=== PATIENT | female | born 1985 | race Two or more races ===

== ENCOUNTER 2025-05-13 09:12 | Emergency (ER) | payer OTHER ==
[~2025-05-13] VITALS: Ht 157.5 cm; Wt 64.0 kg
[2025-05-13] MEDS ORDERED: FAMOTIDINE/PF 20 MG in 0.9 % SODIUM CHLORIDE 8 ML IV PUSH ONE (09:45)
[2025-05-13] MEDS ORDERED: 0.9 % SODIUM CHLORIDE 1,000 ML IV SCH (09:45)
[2025-05-13] MEDS ORDERED: LACTOBACILLUS ACIDOPHILUS 1 CAP CAP PO ONE ×2 (09:45→10:11)
[2025-05-13] MEDS ORDERED: ONDANSETRON HCL 4 MG in 0.9 % SODIUM CHLORIDE 50 ML IV ONE (09:45)
[2025-05-13] MEDS ORDERED: HYOSCYAMINE SULFATE 0.125 MG TAB.SUBL SL ONE (09:45)
[2025-05-13] MEDS ORDERED: ONDANSETRON HCL 2 MG/ML VIAL ONE (10:10)
[2025-05-13] MEDS ORDERED: HYOSCYAMINE SULFATE 0.125 MG TAB.SUBL ONE (10:10)
[2025-05-13] MEDS ORDERED: FAMOTIDINE/PF 20 MG/2 ML VIAL ONE (10:11)
[2025-05-13 10:47] LABS: BASO % 0.7 % (0.1-1.2); EOS # 0.03 (0.04-0.54); EOS % 0.4 % (0.7-7.0); LYMPH # 2.36 (1.18-3.74); LYMPH % 30.9 % (19.3-53.1); MEAN PLATELET VOLUME 10.20 fl (9.4-12.4); MONO # 0.43 (0.24-0.82); MONO % 5.6 % (4.7-12.5); NEUT # 4.75 (1.56-6.13); NEUT % 62.1 % (34.0-71.1); RED CELL DISTRIBUTION WIDTH 14.4 % (11.6-14.4)
[2025-05-13 10:55] LABS: URINE APPEARANCE Cloudy; URINE BILIRRUBIN Negative (NEGATIVE); URINE BLOOD Negative; URINE COLOR Yellow; URINE GLUCOSE Negative (NEGATIVE); URINE KETONE Trace (NEGATIVE); URINE LEUKOCYTE Negative; URINE NITRATE Negative; URINE PROTEIN Trace (NEGATIVE); URINE UROBILINOGEN 0.2 E.U./dl
[2025-05-13 10:57] LABS: URINE BACTERIA 847.1 uL (0.0-1933); URINE CAST 1.90 uL (0.0-1.40); URINE EPITHELIAL CELLS 25.5 uL (0.0-38.8); URINE RBC 31.2 uL (0.0-20.8); URINE WBC 13.6 uL (0.0-23.2)
[2025-05-13 11:13] LABS: INR 1.09
[2025-05-13 12:20] LABS: ALT/SGPT 19 U/L (12-78); AST/SGOT 11 U/L (15-37); BILIRUBIN TOTAL 0.55 mg/dL (0.3-1.2); BUN CREA RATIO 17 (7.0-25.0); CREATININE SERUM 0.59 mg/dL (0.55-1.02); GFR 114.07; GLOBULINA 3.0 G/DL (2.4-3.5); GLUCOSE FASTING 93 mg/dL (65-100); OSMOLALITY SERUM 280 MOSM/KG (275-295)
[2025-05-13 12:23] LABS: HCG QUANTITATIVE < 1 mUI/mL (1-3)
== END 2025-05-13 17:45 | disposition home or self-care (01) ==
LOC: ER 09:13
PROVIDERS: General Practice
DX: R10.32 Left lower quadrant pain (principal); N83.292 Other ovarian cyst, left side; Z88.8 Allergy status to other drugs, medicaments and biological substances